=== PATIENT | male | born 1980 | race African-American/Black ===

== ENCOUNTER 2020-07-17 22:37 | Emergency (ER) | payer OTHER ==
[~2020-07-17] VITALS: Ht 182.9 cm; Wt 90.7 kg
[2020-07-17] MEDS ORDERED: KEPPRA 500 MG500 M1 PO (22:51)
[2020-07-17] MEDS ORDERED: KEPPRA XR500 MG PO (23:29)
[2020-07-18 00:35] VITALS: BP 167/103
== END 2020-07-18 01:57 | disposition home or self-care (01) ==
LOC: ER 22:37
DX: G40.909 Epilepsy, unspecified, not intractable, without status epilepticus (principal); Z79.899 Other long term (current) drug therapy

== ENCOUNTER 2021-05-17 01:06 | Emergency (ER) | payer OTHER ==
[~2021-05-17] VITALS: Ht 182.9 cm; Wt 113.4 kg
--- NOTE | ~2021-05-17 | EMS ---
[address] [address] EMS Patient Care Report Name: SLY MAJANO Room #: DEP KENYON Gandara#: [id number] Admission: 05/17/21 Attend Phys: Discharge: 05/17/21 Date of : 80 Report #: [id number] THIS REPORT FOR: //name// Report Transmitted: 05/18/2021 10:06 EMS Care Summary [place], [place]/[facility] Incident [id number] @ 05/17/2021 00:13 Incident Location [address] Patient SLY MAJANO Male, 40 Years 1980 Patient Address [address] [address] [place] [address] Patient History Seizures,Stroke/CVA, Patient Allergies No known allergies, Patient Medications Unknown, Chief Complaint seizure Disposition Transported No Lights/[place] Dispatch Reason Convulsions/Seizure Transported To [facility] Narrative Initially dispatched with [facility] for seizures. Upon EMS arrival patient was found sitting in his wheelchair, post ictal, lethargic, confused. Female on scene reported that he has a history of seizures since having a stroke. She [address] [address] EMS Patient Care Report Name: SLY MAJANO [facility] [id number] Admission: 05/17/21 Attend Phys: Discharge: 05/17/21 Date of : 80 Report #: [id number] stated that tonight she found him seizing in his wheelchair in the kitchen. She was unsure for how long. Patient began coughing up and vomiting bloody saliva. Assessment found that the patient had bitten his tongue. Patient initially stated that he did not wish to go to the hospital. EMS crew placed patient on high flow oxygen via NRB mask and assessed his vital signs. Patient became slightly more alert, but was still very confused. He was moved from his wheelchair to the stretcher, secured, and loaded into the ambulance. front desk team member showed sinus rhythm. IV access point was searched for but not found. Patient was transported to [facility] without incident. Full report was given to RN prior to signing this document. Initial Vitals @00:43P: 109,CO: 0,SpO2: 96, @00:48P: 82,R: 18,BP: 189/134,Pain: 2/10,GCS: 14,SpO2: 95,Revised Trauma: 12, @00:32P: 92,R: 26,BP: 199/112,GCS: 9,Glucose: 90,CO: 0,SpO2: 100,Revised Trauma: 11, Assessments @00:25MENTAL:Confused,SKIN:Diaphoresis,HEENT:Head/Face: No Abnormalities,Eyes: No Abnormalities,Neck/Airway: No Abnormalities,LUNG SOUNDS:General: Vomiting,ABDOMEN:General: Vomiting,PELVIS//GI:EXTREMITIES:Left Arm: No Abnormalities,Right Arm: No Abnormalities,Left Leg: No Abnormalities,Right Leg: No Abnormalities,PULSE:NEURO:Weakness Left-Sided, Impression Seizures Procedures @00:25 ALS Assessment Response: UnchangedSucceeded @00:48 3-Lead ECG Response: UnchangedSucceeded @00:30 Oxygen FlowRate: 15 Device: Non Re-breather Mask (NRB) Response: ImprovedSucceeded Timeline 00:10,Call Received 00:10,Dispatch Notified 00:13,Dispatched 00:15,En Route 00:20,On Scene 00:25,At Patient 00:25,ALS Assessment,Response: UnchangedSucceeded, 00:30,Oxygen FlowRate: 15 Device: Non Re-breather Mask (NRB) Response: ImprovedSucceeded, 00:32,BP: 199/112 M,PULSE: 92,RR: 26 R,SPO2: 100 Ox,ETCO2: ,B,PAIN: ,GCS: 9, [address] [address] EMS Patient Care Report Name: SLY MAJANO Room #: DEP [facility]#: [id number] Admission: 05/17/21 Attend Phys: Discharge: 05/17/21 Date of : 80 Report #: [id number] 00:43,BP: / M,PULSE: 109,RR: R,SPO2: 96 Ox,ETCO2: ,BG: ,PAIN: ,GCS: , 00:48,3-Lead ECG,Response: UnchangedSucceeded, 00:48,BP: 189/134 M,PULSE: 82,RR: 18 R,SPO2: 95 Ox,ETCO2: ,BG: ,PAIN: 2,GCS: 14, 00:51,Depart Scene 00:58,At Destination 01:11,Call Closed Disclaimer v1.1 Copyright 2020 [employer] This EMS Care Summary contains data elements from the applicable legal record (which may be displayed differently). It is designed to provide pertinent information for the following purposes: continuity of care, clinical quality, and state data reporting. The complete legal record is available to ED staff and administrators of the receiving hospital in [employer] Patient Tracker. All data is provided "as is."
[~2021-05-17 01:06] MED LIST: KEPPRA 500 MG500 M1 PO; KEPPRA XR500 MG PO
[2021-05-17 02:36] LABS: ABSOLUTE NEUTROPHILS 9.5 thou/uL (1.4-8.2); BASOPHILS 0.5 % (0.0-2.0); EOSINOPHILS 1.4 % (0.0-3.0); HEMATOCRIT 48.2 % (42.0-52.0); HEMOGLOBIN 16.2 gm/dL (14.0-18.0); LYMPHOCYTES 9.4 % (24.0-44.0); MCH 28.2 pg (26.0-34.0); MCHC 33.5 g/dL (28.0-37.0); MONOCYTES 4.6 % (1.0-8.0); PLATELET COUNT 149 thou/uL (150-400); POLYS 84.1 % (36.0-66.0); RBC 5.74 mil/uL (4.50-6.00); RDW 14.3 % (10.5-14.5); WBC 11.3 thou/uL (4.0-11.0)
[2021-05-17 02:55] LABS: CALCIUM 8.8 mg/dL (8.5-10.1); CREATININE 1.1 mg/dL (0.7-1.3); POTASSIUM 3.4 mmol/L (3.5-5.1)
[2021-05-17 03:02] LABS: ALBUMIN 3.8 g/dL (3.4-5.0); TOTAL BILIRUBIN 0.5 mg/dL (0.2-1.0); TOTAL PROTEIN 7.8 g/dL (6.4-8.2)
[2021-05-17] MEDS ORDERED: KEPPRA 500 MG500 M1 PO (06:20)
[2021-05-17 06:32] LABS: URINE BILIRUBIN NEGATIVE (Negative); URINE BLOOD TRACE (Negative); URINE CLARITY CLEAR; URINE COLOR YELLOW; URINE GLUCOSE-RANDOM* NEGATIVE (Negative); URINE KETONES TRACE (Negative); URINE LEUKOCYTES-REFLEX NEGATIVE (Negative); URINE NITRITE-REFLEX NEGATIVE (Negative); URINE PROTEIN (DIPSTICK) NEGATIVE (Negative); URINE SPECIFIC GRAVITY 1.015 (1.005-1.035); URINE UROBILINOGEN 0.2 E.U./dl (0.2-1.0)
[2021-05-17 06:39] LABS: AMP/METHAMP POSITIVE (Negative); BARBITURATES Negative (Negative); BENZODIAZEPINES Negative (Negative); COCAINE Negative (Negative); METHADONE Negative (Negative); OPIATES Negative (Negative); PCP Negative (Negative)
[2021-05-17 09:42] VITALS: BP 132/80
== END 2021-05-17 09:43 | disposition home or self-care (01) ==
LOC: ER 01:06
PROVIDERS: Emergency Medicine
DX: S09.90XA Unspecified injury of head, initial encounter (principal); G40.89 Other seizures; R11.2 Nausea with vomiting, unspecified; Z79.899 Other long term (current) drug therapy; X58.XXXA Exposure to other specified factors, initial encounter; Y93.89 Activity, other specified; Y92.89 Other specified places as the place of occurrence of the external cause; Y99.8 Other external cause status